=== PATIENT | female | born 1955 | race Caucasian/White ===

== ENCOUNTER 2019-07-03 22:30 | Emergency (ER) | payer MEDICAID ==
[2019-07-04 01:00] LABS: ADD MAN DIFF? NO
[2019-07-04 01:01] LABS: BASOPHILS % 0.3 % (0.0-2.0); EOSINOPHILS # 0.1 10^3/ul (0.0-0.5); EOSINOPHILS % 0.8 % (0.0-7.0); HEMATOCRIT 36.7 % (37.0-47.0); HEMOGLOBIN 11.3 g/dl (12.0-16.0); LYMPHOCYTES # 1.2 10^3/ul (0.8-2.9); LYMPHOCYTES % 14.9 % (15.0-51.0); MEAN CORPUSCULAR HEMOGLOBIN 28.8 pg (29.0-33.0); MEAN CORPUSCULAR HGB CONC 30.8 g/dl (32.0-37.0); MEAN CORPUSCULAR VOLUME 93.6 fl (82.0-101.0); MEAN PLATELET VOLUME 8.5 fl (7.4-10.4); MONOCYTE # 0.7 10^3/ul (0.3-0.9); MONOCYTES % 8.7 % (0.0-11.0); NEUTROPHIL # 5.9 10^3/ul (1.6-7.5); NEUTROPHILS % 74.8 % (39.0-77.0); PLATELET COUNT 385 10^3/UL (140-415); RED BLOOD COUNT 3.92 10^6/ul (4.20-5.40); RED CELL DISTRIBUTION WIDTH 15.1 % (11.5-14.5)
[2019-07-04 01:01] LABS: WHITE BLOOD COUNT 7.8 10^3/ul (4.8-10.8)
[2019-07-04 01:05] LABS: URINE PH (Dip) POC 6.5 (5.0-8.5)
[2019-07-04 01:05] LABS: URINE BLOOD (Dip) POC Trace-lysed (NEGATIVE); URINE GLUCOSE (Dip) POC Negative (NEGATIVE); URINE KETONES (Dip) POC Negative (NEGATIVE); URINE LEUKOCYTE EST (Dip) POC 1+ (NEGATIVE); URINE NITRITE (Dip) POC Negative (NEGATIVE); URINE TOTAL PROTEIN POC 3+ (NEGATIVE)
[2019-07-04 01:19] LABS: ANION GAP 5 (5-13); BLOOD UREA NITROGEN 35 mg/dl (7-20); CALCIUM 9.2 mg/dl (8.4-10.2); CARBON DIOXIDE 30 mmol/L (21-31); CHLORIDE 102 mmol/L (97-110); Estimated GFR 50 mL/min (>60); GLUCOSE 78 mg/dl (70-220); POTASSIUM 4.7 mmol/L (3.5-5.1); SODIUM 137 mmol/L (135-144)
[2019-07-04] MEDS: ONDANSETRON 4 MG INJ IV (01:19)
[2019-07-04] MEDS: morphine 2 MG INJ IV (01:19)
[2019-07-04 01:21] LABS: INR 2.67; PROTIME 28.5 Sec (11.9-14.9); PT RATIO 2.2
[2019-07-04 01:22] LABS: PARTIAL THROMBOPLASTIN TIME 44.1 Sec (23.0-35.0)
[2019-07-04] MEDS: SOD CHLORIDE 0.9% 500 ML IV (03:32)
[2019-07-04] MEDS: CEFTRIAXONE 1 GM/50 ML (PMX) 50 ML IVPB (03:32)
== END 2019-07-04 04:41 | disposition home or self-care (01) ==
LOC: E/R 22:30
DX: M25.562 Pain in left knee (principal); M25.572 Pain in left ankle and joints of left foot; E86.0 Dehydration; N39.0 Urinary tract infection, site not specified; D64.9 Anemia, unspecified; I10 Essential (primary) hypertension; E11.9 Type 2 diabetes mellitus without complications; M25.561 Pain in right knee; M25.571 Pain in right ankle and joints of right foot; Z87.891 Personal history of nicotine dependence; Z79.4 Long term (current) use of insulin; Z79.01 Long term (current) use of anticoagulants
CPT/HCPCS: 73562; 73610; 73610-RT; 80048; 81003; 85025; 85610; 85730; 93970; 96374; 96375; 99285-25